=== PATIENT | male | born 1980 | race Two or more races ===

== ENCOUNTER 2024-02-13 10:29 | Inpatient (IN) | payer OTHER ==
[2024-02-13 11:21] VITALS: BMI 20.3
[2024-02-13] MEDS ORDERED: ACETAMINOPHEN 325 MG TABLET (FP) PO PRN (13:03)
[2024-02-13] MEDS ORDERED: NALOXONE (NARCAN) HCL 4 MG/0.1 ML SPRAY NS PRN (13:03)
[2024-02-13] MEDS ORDERED: LOPERAMIDE HCL 2 MG CAPSULE PO PRN (13:03)
[2024-02-13] MEDS ORDERED: NALOXONE HCL 0.4 MG/ML VIAL IM PRN (13:03)
[2024-02-13] MEDS ORDERED: guaiFENesin 600 MG TABLET.ER (FP) PO PRN (13:03)
[2024-02-13] MEDS ORDERED: hydrOXYzine PAMOATE 25 MG CAPSULE (FP) PO PRN (13:03)
[2024-02-13] MEDS ORDERED: BENZONATATE 200 MG CAPSULE PO PRN (13:03)
[2024-02-13] MEDS ORDERED: IBUPROFEN 600 MG TABLET (FP) PO PRN (13:03)
[2024-02-13] MEDS ORDERED: NICOTINE POLACRILEX 2 MG GUM BUC PRN (13:03)
[2024-02-13] MEDS ORDERED: BENZOCAINE/MENTHOL (CHLORASEPTIC ) LOZENGE MM PRN (13:03)
[2024-02-13] MEDS ORDERED: MAGNESIUM HYDROX 2400MG/30ML ORAL SUSPENSION 30 ML CUP PO PRN (13:03)
[2024-02-13] MEDS ORDERED: POLYETHYLENE GLYCOL (HEALTHYLAX) 3350 17 GM PACKET PO PRN (13:03)
[2024-02-13] MEDS ORDERED: IBUPROFEN 400 MG TABLET (FP) PO PRN (13:03)
[2024-02-13] MEDS ORDERED: MAG HYDROX/AL HYDROX/SIMETH 30 ML UNIT-DOSE CUP PO PRN (13:03)
[2024-02-13 20:10] VITALS: RESP 18
[2024-02-13] MEDS: THIAMINE 100 MG TABLET PO SCH (21:53)
[2024-02-13] MEDS: MELATONIN 5 MG TABLETS PO SCH (21:53)
[2024-02-14] MEDS: PRENATAL VITAMINS W/ FOLIC ACID TABLET (FP) PO SCH (09:44)
[2024-02-14] MEDS: NICOTINE 14 MG/24 HOURS TOPICAL PATCH TD SCH (09:45)
[2024-02-14 12:14] LABS: HEMATOCRIT 31.7 % (35.4-49); HEMOGLOBIN 10.3 GM/dL (11.7-16.9); MCH 32.3 pg (25.7-33.7); MCHC 32.7 g/dl (32.0-35.9); MEAN CELL VOLUME 98.9 fl (80-96); MEAN PLT VOLUME 8.2 fl (7.5-11.1); PLATELET COUNT 491 10^3/uL (134-434); WHITE BLOOD COUNT 6.3 K/mm3 (4.0-10.0)
[2024-02-14 12:17] LABS: CHLORIDE 106 mmol/L (98-107); POTASSIUM 4.6 mmol/L (3.5-5.1); SODIUM 138 mmol/L (136-145)
[2024-02-14 12:20] LABS: ALBUMIN 3.4 g/dl (3.4-5.0)
[2024-02-14 12:21] LABS: ANION GAP 7 mmol/L (4-13); BLOOD UREA NITROGEN 12.8 mg/dL (7-18); CO2 26 mmol/L (21-32); GLUCOSE,RANDOM 124 mg/dL (74-106)
[2024-02-14 12:24] LABS: CREATININE 0.9 mg/dL (0.55-1.3); SGOT/AST 55 U/L (15-37); SGPT/ALT 50 U/L (13-61)
[2024-02-14 12:25] LABS: BILIRUBIN,TOTAL 1.3 mg/dL (0.2-1); TOT PROT 6.4 g/dl (6.4-8.2)
[2024-02-14 12:26] LABS: ALK PHOS 69 U/L (45-117)
[2024-02-14 20:19] LABS: EPI CELLS 9 /uL (0-25.1); HYALINE CASTS 0 /uL (0-3.1); URINE APPEARANCE CLEAR; URINE BACTERIA 4 /uL (0-1359); URINE BILIRUBIN NEGATIVE (NEGATIVE); URINE COLOR YELLOW; URINE GLUCOSE (UA) NEGATIVE (NEGATIVE); URINE KETONE NEGATIVE (NEGATIVE); URINE LEUK ESTERASE NEGATIVE (NEGATIVE); URINE NITRITE NEGATIVE (NEGATIVE); URINE PROTEIN 1+ (NEGATIVE); URINE RBC 3 /uL (0-23.9); URINE WBC 20 /uL (0-25.8)
[2024-02-14] MEDS: QUEtiapine FUMARATE 100 MG TABLET (FP) PO SCH (21:14)
[2024-02-15 07:26] VITALS: BP 136/88; PULSE 67; TEMP 97.9
== END 2024-02-15 10:30 | disposition home or self-care (01) | DRG 772 ==
LOC: YASAS 10:29 → Y5N 13:16
PROVIDERS: ADMIT Psychiatry & Neurology Pain Medicine; ATTEND Psychiatry & Neurology Pain Medicine
PROC: HZ42ZZZ Group Counseling for Substance Abuse Treatment, Cognitive-Behavioral (ICD-10-PCS; principal; 2024-02-13)
DX: F14.20 Cocaine dependence, uncomplicated (principal); F16.20 Hallucinogen dependence, uncomplicated; F17.210 Nicotine dependence, cigarettes, uncomplicated; F19.282 Other psychoactive substance dependence with psychoactive substance-induced sleep disorder; F19.24 Other psychoactive substance dependence with psychoactive substance-induced mood disorder; F43.10 Post-traumatic stress disorder, unspecified; F32.9 Major depressive disorder, single episode, unspecified; R94.31 Abnormal electrocardiogram [ECG] [EKG]; Z56.0 Unemployment, unspecified; Z59.00 Homelessness unspecified
CPT/HCPCS: 0241U-QW; 36415; 80053; 80305; 80307; 81003; 85027; 86780; 87811; 93005; 93010

== ENCOUNTER 2024-02-13 14:57 | Emergency (ER) | payer OTHER ==
[2024-02-13 15:07] VITALS: BP 134/84; PULSE 84; RESP 18; TEMP 98.3; BMI 21.5
[2024-02-13 17:12] LABS: VENOUS PCO2 40.3 mmHg (38-52); VENOUS PH 7.42 (7.310-7.410)
[2024-02-13 17:15] LABS: BASO % 0.5 % (0-2.0); EOS % 3.6 % (0-4.5); HEMATOCRIT 25.7 % (35.4-49); HEMOGLOBIN 8.7 GM/dL (11.7-16.9); LYMPH % 27.8 % (8-40); MCH 32.5 pg (25.7-33.7); MCHC 33.7 g/dl (32.0-35.9); MEAN CELL VOLUME 96.4 fl (80-96); MEAN PLT VOLUME 7.5 fl (7.5-11.1); MONO % 8.7 % (3.8-10.2); NEUT % 59.4 % (42.8-82.8); PLATELET COUNT 424 10^3/uL (134-434); RBC 2.66 M/mm3 (4.00-5.60); RDW 14.8 % (11.9-15.9); WHITE BLOOD COUNT 7.4 K/mm3 (4.0-10.0)
[2024-02-13 17:37] LABS: POTASSIUM 4.5 mmol/L (3.5-5.1)
[2024-02-13 17:39] LABS: ALBUMIN 3.4 g/dl (3.4-5.0); BLOOD UREA NITROGEN 13.4 mg/dL (7-18); CALCIUM 8.9 mg/dL (8.5-10.1)
[2024-02-13 17:44] LABS: TOT PROT 6.4 g/dl (6.4-8.2)
[2024-02-13 18:41] LABS: HIV INTERPRETATION NEGATIVE (NEGATIVE)
== END 2024-02-13 18:54 | disposition home or self-care (01) ==
LOC: JER 14:57
DX: R05.9 Cough, unspecified (principal); R07.9 Chest pain, unspecified; Z20.822 Contact with and (suspected) exposure to COVID-19
CPT/HCPCS: 0241U-QW; 36415; 71046-TC-FY; 80053; 82803; 84484; 85025; 86803; 87389; 93005; 93010; 99285-25